=== PATIENT | female | born 1995 | race Caucasian/White ===

== ENCOUNTER 2017-06-08 22:46 | Emergency (ER) | payer OTHER ==
[~2017-06-08] VITALS: Ht 162.6 cm; Wt 79.5 kg
[2017-06-09] MEDS ORDERED: MORPHINE SULFATE 4 MG/ML SYRINGE IM ONE (00:15)
[2017-06-09] MEDS ORDERED: MORPHINE SULFATE 2 MG/ML SYRINGE IM ONE (00:15)
[2017-06-09] MEDS ORDERED: POVIDONE-IODINE 10% 15 ML SOLUTION UD TP ONE (00:15)
[2017-06-09] MEDS ORDERED: BUPIVACAINE HCL/PF 0.25% 10 ML VIAL INJ ONE (00:15)
[2017-06-09 02:31] VITALS: BP 125/70
== END 2017-06-09 02:33 | disposition home or self-care (01) ==
LOC: EMS 22:52
DX: L02.31 Cutaneous abscess of buttock (principal)
CPT/HCPCS: 10060; 96372; 99283; J2270; J3490

== ENCOUNTER 2017-06-11 11:03 | Emergency (ER) | payer OTHER ==
[~2017-06-11] VITALS: Ht 157.5 cm; Wt 59.1 kg
[2017-06-11 12:01] VITALS: BP 115/68
[2017-06-11] MEDS ORDERED: POVIDONE-IODINE 10% 15 ML SOLUTION UD TP ONE (12:15)
== END 2017-06-11 12:58 | disposition home or self-care (01) ==
LOC: EMS 11:04
DX: Z48.01 Encounter for change or removal of surgical wound dressing (principal); L03.119 Cellulitis of unspecified part of limb
CPT/HCPCS: 99282

== ENCOUNTER 2018-05-11 12:09 | Emergency (ER) | payer OTHER ==
[~2018-05-11] VITALS: Ht 160 cm; Wt 59.1 kg
[2018-05-11] MEDS: IBUPROFEN 800 MG TABLET PO ONE ×2 (13:18→13:20)
[2018-05-11 14:10] VITALS: BP 118/72
== END 2018-05-11 14:16 | disposition home or self-care (01) ==
LOC: EMS 12:10
DX: S63.602A Unspecified sprain of left thumb, initial encounter (principal); W22.8XXA Striking against or struck by other objects, initial encounter; Y93.89 Activity, other specified; Y92.89 Other specified places as the place of occurrence of the external cause; Y99.8 Other external cause status
CPT/HCPCS: 29280; 99284

== ENCOUNTER 2020-08-05 19:23 | Emergency (ER) | payer SELFPAY ==
[~2020-08-05] VITALS: Ht 160 cm; Wt 72.7 kg
[2020-08-05 19:24] VITALS: BP 137/84
== END 2020-08-05 21:30 | disposition left against medical advice (07) ==
LOC: EMS 19:23
DX: N60.02 Solitary cyst of left breast (principal); Z53.21 Procedure and treatment not carried out due to patient leaving prior to being seen by health care provider

== ENCOUNTER 2025-10-11 22:02 | Emergency (ER) | payer OTHER ==
[~2025-10-11] VITALS: Ht 160 cm; Wt 75.0 kg
[2025-10-11 22:05] VITALS: TEMP 98.1
[2025-10-12] VITALS: BP 122/71; PULSE 71; RESP 15; O2SAT 100
[2025-10-12] MEDS: METOCLOPRAMIDE HCL 10 MG TABLET PO ONE (00:26)
[2025-10-12] MEDS: IBUPROFEN 400 MG TABLET PO ONE (00:26)
[2025-10-12] MEDS: ACETAMINOPHEN 500 MG TABLET PO ONE (00:27)
== END 2025-10-12 01:10 | disposition home or self-care (01) ==
LOC: EMS 22:02
DX: R51.9 Headache, unspecified (principal); R59.1 Generalized enlarged lymph nodes
CPT/HCPCS: 99284; Z7502; Z7610